=== PATIENT | female | born 1945 | race Caucasian/White ===

== ENCOUNTER → 2016-09-07 | Outpatient (POV) | LOC: OUTPT 00:01 | PROVIDERS: ATTEND Otolaryngology | DX: H91.90 Unspecified hearing loss, unspecified ear (principal) | CPT/HCPCS: 92557; 92567 ==

== ENCOUNTER 2017-02-27 13:08 | Outpatient (CLI) ==
--- NOTE | 2017-03-01 10:18 | MAMMO ---
EXAM: Bilateral digital screening mammogram History: Screening Comparison: Bilateral mammogram 02/08/2016 Findings: MLO and CC views of bilateral breasts demonstrate scattered fibroglandular breast parench yma. There are no dominant masses, no suspicious microcalcifications and no architectural distortion s Impression: Stable negative mammogram. Recommend followup routine screening mammography in 1 year. BIRADS 1
== END 2017-02-27 13:09 | disposition home or self-care (01) ==
LOC: RAD 13:08
PROVIDERS: ATTEND Internal Medicine
DX: Z12.31 Encounter for screening mammogram for malignant neoplasm of breast (principal)

== ENCOUNTER 2018-06-14 12:42 | Outpatient (CLI) ==
--- NOTE | 2018-06-15 09:28 | MAMMO ---
EXAM: Bilateral digital screening mammogram (2-D and 3-D) History: Screening Comparison: Bilateral mammogram 02/27/2017 Findings: MLO and CC views of bilateral breasts demonstrate scattered fibroglandular breast parenchy ma. CAD was reviewed by the radiologist. Tomosynthesis was performed. Small nodules within the henry ateral axillary regions were not seen on prior study. No microcalcifications. Impression: Small bilateral axillary nodules could represent lymph nodes but are indeterminate were n ot seen on prior study. Recommend further evaluation with ultrasound. BIRADS 0
== END 2018-06-14 12:43 | disposition home or self-care (01) ==
LOC: RAD 12:42
PROVIDERS: ATTEND Internal Medicine
DX: Z12.31 Encounter for screening mammogram for malignant neoplasm of breast (principal)
CPT/HCPCS: 77067

== ENCOUNTER 2018-06-22 08:19 | Outpatient (CLI) ==
--- NOTE | 2018-06-22 09:00 | CT ---
EXAM: CT of the chest without contrast History: Bilateral axillary pain and swelling. Comparison: Bilateral mammogram 06/14/2018 Technique: Multiplanar CT images through the thorax were obtained without the administration of IV c ontrast Findings: Heart is borderline enlarged. No pericardial effusion. No thoracic aortic aneurysm. No pathologically enlarged axillary lymph nodes. No axillary inflammation. No pathologically enlarged mediastinal or hilar lymph nodes. No consolidation. No pleural fluid and no pneumothorax. No suspi cious lung masses or lung nodules. Subsegmental atelectasis seen within the lingula. Within the visualized upper abdomen, no acute findings. No acute osseous abnormalities. Impression: 1. No acute intrathoracic process. 2. No enlarged axillary lymph nodes and no axillary inflammation. 3. Borderline cardiomegaly
--- NOTE | 2018-06-22 09:20 | US ---
EXAM: Bilateral axillary ultrasound. History: Bilateral axillary lymph nodes seen on recent mammogram Comparison: Bilateral mammogram 06/14/2018, chest CT 06/22/2018 Technique: Multiple sonographic images through the bilateral axillary region were obtained. Color d uplex Doppler was used to interrogate vascular flow. Findings: Multiple nonenlarged benign bilateral axillary lymph nodes are seen with a fatty hilum. N o suspicious lymph nodes are identified. No abnormal fluid collections. Impression: No sonographic evidence of malignancy. Benign bilateral axillary lymph nodes. Recommend return to routine screening mammography schedule BIRADS 2
== END 2018-06-22 08:20 | disposition home or self-care (01) ==
LOC: RAD 08:19
PROVIDERS: ATTEND Internal Medicine
DX: R92.8 Other abnormal and inconclusive findings on diagnostic imaging of breast (principal)